=== PATIENT | female | born 1985 | race Caucasian/White ===

== ENCOUNTER 2018-02-08 20:47 | Inpatient (IN) ==
[2018-02-08] MEDS ORDERED: traZODone 50 MG TABLET PO PRN (21:32)
[2018-02-08] MEDS ORDERED: Haloperidol Lactate 5 MG/ML VIAL IM PRN (21:32)
[2018-02-08] MEDS ORDERED: *HR* LORazepam 2 MG/ML VIAL IM PRN (21:32)
[2018-02-08] MEDS ORDERED: MOM Conc 10 ML UD.LIQ PO PRN (21:32)
[2018-02-08] MEDS ORDERED: Acetaminophen 325 MG TABLET PO PRN (21:32)
[2018-02-08] MEDS ORDERED: Mag Hydrox/Al Hydrox/Simeth 30 ML UDC PO PRN (21:32)
[2018-02-08] MEDS ORDERED: *HR* LORazepam 1 MG TABLET PO PRN (21:32)
[2018-02-08] MEDS ORDERED: hydrOXYzine pamoate 25 MG CAPSULE PO PRN (21:32)
[2018-02-09] MEDS: Nicotine 21 MG PATCH.TD24 TD SCH (08:47)
--- NOTE | 2018-02-09 09:58 | Discharge Summary ---
Date of Encounter: 02/09/18 Time of Encounter: 09:50 Medications - Discharge Medications ARIPiprazole [Abilify] 5 mg PO DAILY 02/09/18 [History] Cholecalciferol (Vitamin D3) [Vitamin D] 800 unit PO DAILY 02/09/18 [History] Labetalol [Trandate] 200 mg PO BID 02/09/18 [History] Trazodone HCl 100 - 200 mg PO HS PRN 02/09/18 [History] Venlafaxine XR (24 HR) [Effexor XR] 225 mg PO DAILY 02/09/18 [History] metFORMIN [Glucophage] 500 mg PO BID 02/09/18 [History] 3 Allergy/AdvReac Type Severity Reaction Status Date / Time cephalexin [From Keflex] Allergy Anaphylaxis Verified 02/08/18 21:31 Penicillins Allergy Anaphylaxis Verified 02/08/18 21:31 acetaminophen [From Percocet] AdvReac Hallucinati Verified 02/08/18 21:31 ng clonazepam [From Klonopin] AdvReac See Verified 02/08/18 21:31 Comments naproxen [From Naprosyn] AdvReac Vomiting Verified 02/08/18 21:31 Oxycodone [From Percocet] AdvReac Hallucinati Verified 02/08/18 21:31 ng Provider Date of admission: 02/08/18 20:47 Primary care physician: PCP NONE Psychiatry Exam - Constitutional Vitals: Temp Pulse Resp BP 98.1 F 80 18 136/87 02/09/18 09:00 02/09/18 09:00 02/09/18 09:00 02/09/18 09:00 Hospital Course Hospital course: Ms. Garcia is a 32 year old female - Time Spent with Patient Total time spent providing and/or coordinating discharge services: Assessment and Plan - Follow up Plan Follow up with: NONE,PCP [Primary Care Provider] -
--- NOTE | 2018-02-09 14:12 | Psychiatry History & Physical ---
Date of Encounter: 02/09/18 Time of Encounter: 13:40 History of Present Illness Patient Stated Chief Complaint: "I had a major panic attack, actually a major breakdown" Medicare Admission Attestation: For traditional Medicare patients the provided hospital inpatient services are reasonable and necessary and in the case of services not specified as inpatient -only under 42 CFR 419.22 (n), that they are appropriately provided as inpatient services in accordance 42 CFR 412.3. For Critical Access Hospital the patient may reasonably be expected to be discharged or transferred to a hospital within 96 hours after admission to the Critical Access Hospital. Admitted From: Emergency Dept Plans for Post Hospital Care: Home History of Present Illness: Ms. Garcia is a 32 year old female who was admitted after being seen in [facility] emergency room feeling "I had a major panic attack, actually a major breakdown. I thought I was hearing Hayley again". Patient states that she has been off her medications for at least 5 days. She states she is experiencing poor sleep, feeling anxious and irritable, depressed with low energy hopeless and helpless, decreased appetite and auditory hallucination. She was hearing Hayley's voice telling her to herself. She is not sure why she stopped taking the medication. She denies any side effects. She tells me that she just got busy and forgot. She denies any symptoms of matty, impulsivity or grandiosity. When sh started hearing the voice of Hayley again, she knew she needed to get to the hospital. She has been under a lot of stress lately her [id number] a couple weeks ago, her brother was hospitalized for medical reasons and soon after her mother was hospitalized. She was feeling suicidal when she went the emergency room. She did not make any attempt or gesture. She also states that she is having stress at work with a problematic client and also having stress in her home environment with some physical issues with the house that are not getting repaired. She does feel safe on the unit. She denies any current suicidal ideation. She is wanting to get restarted on her medications. She denies any auditory hallucinations at this time. She did not sleep well well last night taking a low-dose trazodone. We discussed restarting her medications Abilify 5 mg PO Q day in the trazodone 100mg -200 mg PO QHS and probably needing to taper her Effexor XR back up. Starting a 75 mg again and potentially rapid tapering it up to the 225 mg where she was. She is agreeable to all this. Past Med Surg Social Fam HX - Past Medical History Source: patient Medical history: hyperlipidemia, hypertension - Past Psychiatric History Psychiatric history: Reports: depression, prior suicide attempt, previous psychiatric hospitalization Family psychiatric history: Yes (Maternal Grandfather) Family History of Suicide: None - Past Surgical History Surgical History: breast surgery - Social History Smoking Status: Current every day smoker Smokeless Tobacco Status: No Alcohol use: occasionally Drug use: none Occupational status: employed Current living situation: Home - Independent Activity Level: Independent ambulation Recent Out of Country Travel Within the Last 8 Weeks: No Exposure or Possible Exposure to Illness During Travel: No - Family History Mother History Unknown: Yes Adopted: Yes (Grandmother adopted) Age: 1 Family Member Ethnicity: Non- Living Status: Still Living Hx Family Cardiac Disorders: Yes Hx Family Respiratory Disorders: No Hx Family Cancer: Yes Hx Family GI Disorders: No Hx Family Genitourinary Disorders: No Hx Family Endocrine Disorder: Yes Hx Family Musculoskeletal Disorders: No Hx Family Neuromuscular Disorders: Yes ( mother has MS) Hx Family Neurologic Disorders: Yes (CVAs) Hx Family HEENT Disorders: No Hx Family Autoimmune Disorders: No Hx Family Reproductive Disorders: No Hx Family Psychosocial Disorders: Yes (Grandfather and his side of family have unknown issues) Hx Family Medical Disorders: No Medications & Allergies ARIPiprazole [Abilify] 5 mg PO DAILY 02/09/18 [History] Cholecalciferol (Vitamin D3) [Vitamin D] 800 unit PO DAILY 02/09/18 [History] Labetalol [Trandate] 200 mg PO BID 02/09/18 [History] Trazodone HCl 100 - 200 mg PO HS PRN 02/09/18 [History] Venlafaxine XR (24 HR) [Effexor XR] 225 mg PO DAILY 02/09/18 [History] metFORMIN [Glucophage] 500 mg PO BID 02/09/18 [History] 3 Allergy/AdvReac Type Severity Reaction Status Date / Time cephalexin [From Keflex] Allergy Anaphylaxis Verified 02/08/18 21:31 Penicillins Allergy Anaphylaxis Verified 02/08/18 21:31 acetaminophen [From Percocet] AdvReac Hallucinati Verified 02/08/18 21:31 ng clonazepam [From Klonopin] AdvReac See Verified 02/08/18 21:31 Comments naproxen [From Naprosyn] AdvReac Vomiting Verified 02/08/18 21:31 Oxycodone [From Percocet] AdvReac Hallucinati Verified 02/08/18 21:31 ng Exam - HEENT Head exam IM: Present: atraumatic Eye exam IM: Present: EOMI, normal appearance ENT exam IM: Present: normal exam - Extremities Extremities exam IM: Present: full ROM - Constitutional Vitals: Temp Pulse Resp BP 98.1 F 80 18 136/87 02/09/18 09:00 02/09/18 09:00 02/09/18 09:00 02/09/18 09:00 General appearance: age & developmentally appropriate, well-groomed, well- nourished - Musculoskeletal Gait: normal Station: erect Strength & Tone: normal for patient - Psychiatric Patient Orientation: Yes Person, Yes Time, Yes Place, Yes Circumstance Level of alertness: Alert Behavior: cooperative, nervous Psychomotor activity: Normal Eye Contact: Maintains Eye Contact Mood Description: Anxious Affect description: flat, other (very unemotional) Speech Volume: Normal Speech pattern: normal rate, normal rhythm, normal tone Language & Vocabulary: consistent with education Thought Process: Intact, Logical, Linear, Goal Oriented Attention Span Ability: Capable of Focused Attention, Capable of Sustained Attention Memory Description: Grossly Intact Patient Reliability: Reliable Historian Fund of knowledge: Yes abstraction ability Intelligence Estimate: Average Judgment: Fair Insight: Partial Assessment and Plan (1) Depression, major, recurrent, severe with psychosis Current visit: Yes Status: Acute Plan: Admit inpatient for safety and stabilization, Close observation, Suicide Precautions per unit protocol, Encourage participation in unit milieu, Group Therapy, Monitor sleep Risks, benefits, side effects, alternatives discussed w /pt: Yes (Restart outpatinet medications; taper up Effexor.) Patient agreeable to treatment: Yes Plans for Post Hospital Care: Home Estimated Length of Stay (Days): 5
[2018-02-09] MEDS: Venlafaxine XR (24 HR) 75 MG CAP.ER.24H PO SCH (15:02)
[2018-02-09] MEDS: ARIPiprazole 5 MG TABLET PO SCH (15:02)
[2018-02-09] MEDS: traZODone 50 MG TABLET PO SCH (20:10)
[2018-02-10] MEDS: ARIPiprazole 5 MG TABLET PO SCH (09:35)
[2018-02-10] MEDS: Nicotine 21 MG PATCH.TD24 TD SCH (09:36)
[2018-02-10] MEDS: Venlafaxine XR (24 HR) 75 MG CAP.ER.24H PO SCH (09:36)
--- NOTE | 2018-02-10 11:23 | Psychiatry Progress Note ---
Date of Encounter: 02/10/18 Time of Encounter: 11:10 Subjective Interval history: Patient tells me today she is "good". She denies any side effects of the restarting of the medication. She states that she would like to increase the Effexor to 150 mg tomorrow. She is eating fine, sleeping fine; having slept 8.5 hours last night. She had a family visit last night she states went well. She feels positive about that. She is reading books on the unit and attending groups. She denies any suicidal/homicidal ideation. She denies any auditory or visual hallucinations. Her depression seems to be slightly improved, with her not feeling is low mood and feeling more motivated. She's had no more hallucinations in hearing Hayley's voice. Results - Vital Signs Vital Signs: Temp Pulse Resp BP 97.7 F 90 18 128/89 02/10/18 08:53 02/10/18 08:53 02/10/18 08:53 02/10/18 08:53 Assessment and Plan (1) Depression, major, recurrent, severe with psychosis Current visit: Yes Status: Acute Plan: Continue hospitalization, Close observation, Suicide Precautions per unit protocol, Encourage participation in unit milieu, Group Therapy, Monitor sleep Risks, benefits, side effects, alternatives discussed w/pt: Yes (Increase Effexor XR dose tomorrow to 150 mg) Patient agreeable to treatment: Yes Consult Discharge Plan - Plan Referrals: [facility] [Outside] - 03/30/18 10:00 am (The above appointment is with Dr. Willis outpatient psychiatric assessment and medication management services on. You have another appointment scheduled with Dr. Willis for 2017 at 11:20 AM also. Please arrive 10 minutes early to all appointments to complete the check-in process. Please bring your insurance card (or [facility]) and photo ID. If you are unable to keep any scheduled appointment, 24 hour business notice of cancellation is expected. The above appointment(s) reflects first availability. You may contact the office regularly to check for cancellations that may allow you to be seen sooner. ) [facility] [Outside] - 02/21/18 11:00 am (The above appointment is with Bhumika Ga for outpatient mental health counseling services.) Psychiatry Exam - Constitutional Vitals: Temp Pulse Resp BP 97.7 F 90 18 128/89 02/10/18 08:53 02/10/18 08:53 02/10/18 08:53 02/10/18 08:53 General appearance: age & developmentally appropriate - Musculoskeletal Gait: normal Station: relaxed Strength & Tone: normal for patient - Psychiatric Patient Orientation: Yes Person, Yes Time, Yes Place, Yes Circumstance Level of alertness: Alert Behavior: calm, cooperative Psychomotor activity: Normal Eye Contact: Maintains Eye Contact Mood Description: Euthymic/stable Affect description: congruent with mood Speech Volume: Normal Speech pattern: normal rate, normal rhythm, normal tone Language & Vocabulary: consistent with education Thought Process: Intact, Logical, Linear, Goal Oriented Thought Content: Yes Intact Attention Span Ability: Capable of Focused Attention, Capable of Sustained Attention Memory Description: Grossly Intact Patient Reliability: Reliable Historian Fund of knowledge: Yes abstraction ability Intelligence Estimate: Average Judgment: Good Insight: Partial
[2018-02-10] MEDS: traZODone 50 MG TABLET PO SCH (21:51)
[2018-02-11] MEDS: Venlafaxine XR (24 HR) 150 MG CAP.ER.24H PO SCH (09:41)
[2018-02-11] MEDS: ARIPiprazole 5 MG TABLET PO SCH (09:41)
[2018-02-11] MEDS: Nicotine 21 MG PATCH.TD24 TD SCH (09:41)
--- NOTE | 2018-02-11 11:42 | Psychiatry Progress Note ---
Date of Encounter: 02/11/18 Time of Encounter: 11:30 Subjective Interval history: ID patient is a 32-year-old white female. Her chief complaint is have not heard the voice of Hayley since . History of present illness: The patient had been admitted after missing her medicines for several days. She told me that she had gotten busy and was unable to get the meds filled or taken. She developed suicidal ideation and auditory hallucinations. The voice of Hayley told her to kill herself. But currently voice of Hayley cannot be heard and patient does not have immediate plans to kill herself or kill himself on the unit. The patient had the Effexor increased to 50 mg. She was able to tolerate this increase. She requests an increase to 225 but because of side effects and does not want to increase tomorrow. The patient is interested in going to work in the next week. 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 The patient put in 88 hours in the week before admission and this may have played a role in depression and the emergence of auditory hallucinations. Other options for the patient included 90 day supply of Effexor and Abilify or even a long-acting injectable form of Abilify. This includes her started and Abilify maintain. Patient's blood pressures been under control with medication and is been no increase in blood pressure with the increase in Effexor. Nonetheless monitoring blood pressure is important. The importance of follow-up and continuing on the medicines and 2018 discussed efforts to reduce her taper her medicines should be discussed with her prescribing physician. Sleep hygiene and sleep maintenance were also discussed Review of Systems Psychiatric: Reports: depression, abnormal sleep pattern, suicidal ideation, auditory hallucinations Results - Vital Signs Vital Signs: Temp Pulse Resp BP 98.3 F 81 16 114/74 02/11/18 09:00 02/11/18 09:00 02/11/18 09:00 02/11/18 09:00 Assessment and Plan (1) Essential (primary) hypertension Current visit: Yes Status: Chronic Plan: Continue hospitalization, Close observation, Encourage participation in unit milieu, Monitor sleep, Monitor appetite Risks, benefits, side effects, alternatives discussed w/pt: Yes Patient agreeable to treatment: Yes (2) Suicidal ideations Current visit: Yes Status: Acute Plan: Continue hospitalization, Close observation, Secure weapons, Family/ Supportive other meeting Risks, benefits, side effects, alternatives discussed w/pt: Yes Patient agreeable to treatment: Yes (3) Depression, major, recurrent, severe with psychosis Current visit: Yes Status: Acute Plan: Continue hospitalization, Close observation, Suicide Precautions per unit protocol, Encourage participation in unit milieu, Group Therapy, Monitor sleep, Secure weapons, Family/Supportive other meeting Risks, benefits, side effects , alternatives discussed w/pt: Yes (Increase Effexor XR dose tomorrow to 150 mg ) Patient agreeable to treatment: Yes Consult Discharge Plan - Plan Referrals: [facility] [Outside] - 03/30/18 10:00 am (The above appointment is with Dr. Willis outpatient psychiatric assessment and medication management services on. You have another appointment scheduled with Dr. Willis for 2017 at 11:20 AM also. Please arrive 10 minutes early to all appointments to complete the check-in process. Please bring your insurance card (or [facility] award letter) and photo ID. If you are unable to keep any scheduled appointment, 24 hour business notice of cancellation is expected. The above appointment(s) reflects first availability. You may contact the office regularly to check for cancellations that may allow you to be seen sooner. ) [facility] [Outside] - 02/21/18 11:00 am (The above appointment is with Bhumika Ga for outpatient mental health counseling services.) Psychiatry Exam - Constitutional Vitals: Temp Pulse Resp BP 98.3 F 81 16 114/74 02/11/18 09:00 02/11/18 09:00 02/11/18 09:00 02/11/18 09:00 General appearance: age & developmentally appropriate, well-groomed, well- nourished - Musculoskeletal Gait: normal Station: relaxed Strength & Tone: normal for patient - Psychiatric Patient Orientation: Yes Person, Yes Time, Yes Place Level of alertness: Alert Behavior: calm, cooperative Eye Contact: Maintains Eye Contact Affect description: full range, dysphoric Speech Volume: Normal Speech pattern: normal rate, normal rhythm, normal tone, fluent, spontaneous Language & Vocabulary: consistent with education Thought Process: Linear, Goal Oriented Thought Content: Yes Suicidal ideation, No Homicidal ideation, No Overt delusions Perceptual Disturbances: Yes Auditory hallucinations, No Visual hallucinations Attention Span Ability: Capable of Focused Attention Memory Description: Grossly Intact Patient Reliability: Reliable Historian Fund of knowledge: Yes abstraction ability, Yes aware of current events Intelligence Estimate: Average Judgment: Fair Insight: Partial
[2018-02-11] MEDS: traZODone 50 MG TABLET PO SCH (21:06)
[2018-02-12] MEDS: Nicotine 21 MG PATCH.TD24 TD SCH (09:35)
[2018-02-12] MEDS: Venlafaxine XR (24 HR) 150 MG CAP.ER.24H PO SCH (09:35)
[2018-02-12] MEDS: ARIPiprazole 5 MG TABLET PO SCH (09:35)
[2018-02-12] MEDS ORDERED: Venlafaxine XR (24 HR) 75 MG CAP.ER.24H PO SCH (11:00)
--- NOTE | 2018-02-12 11:02 | Psychiatry Progress Note ---
Date of Encounter: 02/12/18 Time of Encounter: 11:00 Subjective Interval history: The patient is a 32-year-old white female who returns for follow-up on the unit. Chief complaint I am worried about the voices and depression coming back. The patient is improved on the current regimen of medicines however she is not the target dose of Effexor 225 mg per day previously she took 375's in the morning in order to achieve this dose. The patient uses a [facility] pharmacy in her town which has some limited hours. The patient is working long hours at her job. The patient has been getting 30 day supplies of her psychiatric medicines and blood pressure medicines. Her vital signs remained stable and she feels that she is tolerating the medicine she has no nausea or vomiting today. 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 She had auditory hallucinations with suicidal ideation and suicidal intent. Therefore she was concerned about how long she should remain on medicines and how to stay on medicines. Salgado direct care counselor was given regarding using a 90 day supply of medicines, home delivery pharmacy services, mail-order medication options and the need to stay on the same dose of these medicines for one year after the index hospitalization. For some patients with severe episodes 5 years of continuous medicine can be considered. However I told her I would defer to Dr. Hogan for the ongoing management of condition. The patient notes that the Vistaril is helpful and would like to continue this on an as-needed basis at discharge. I will place her on a scheduled Vistaril. I will increase Effexor. Patient has counseling scheduled next week. Further stabilization will be necessary on the unit as well as adjustment to the medicine Effexor Review of Systems Psychiatric: Reports: depression, abnormal sleep pattern, suicidal ideation, auditory hallucinations Results - Vital Signs Vital Signs: Temp Pulse Resp BP 97.3 F L 81 16 119/82 02/12/18 09:00 02/12/18 09:00 02/12/18 09:00 02/12/18 09:00 Assessment and Plan (1) Essential (primary) hypertension Current visit: Yes Status: Chronic Plan: Continue hospitalization, Close observation, Suicide Precautions per unit protocol, Monitor sleep Risks, benefits, side effects, alternatives discussed w/pt: Yes Patient agreeable to treatment: Yes (2) Suicidal ideations Current visit: Yes Status: Acute Plan: Continue hospitalization, Close observation, Suicide Precautions per unit protocol, Encourage participation in unit milieu, Secure weapons Risks, benefits, side effects, alternatives discussed w/pt: Yes Patient agreeable to treatment: Yes (3) Depression, major, recurrent, severe with psychosis Current visit: Yes Status: Acute Plan: Continue hospitalization, Close observation, Suicide Precautions per unit protocol, Encourage participation in unit milieu, Group Therapy, Monitor sleep, Monitor appetite Risks, benefits, side effects, alternatives discussed w/pt: Yes (Increase Effexor XR dose tomorrow to 150 mg) Patient agreeable to treatment: Yes Consult Discharge Plan - Plan Referrals: [facility] [Outside] - 03/30/18 10:00 am (The above appointment is with Dr. Willis outpatient psychiatric assessment and medication management services on. You have another appointment scheduled with Dr. Willis for 2017 at 11:20 AM also. Please arrive 10 minutes early to all appointments to complete the check-in process. Please bring your insurance card ([facility]) and photo ID. If you are unable to keep any scheduled appointment, 24 hour business notice of cancellation is expected. The above appointment(s) reflects first availability. You may contact the office regularly to check for cancellations that may allow you to be seen sooner. ) [facility] [Outside] - 02/21/18 11:00 am (The above appointment is with Bhumika Ga for outpatient mental health counseling services.) Psychiatry Exam - Constitutional Vitals: Temp Pulse Resp BP 97.3 F L 81 16 119/82 02/12/18 09:00 02/12/18 09:00 02/12/18 09:00 02/12/18 09:00 General appearance: age & developmentally appropriate, well-groomed, well- nourished - Musculoskeletal Gait: normal Station: relaxed Strength & Tone: normal for patient - Psychiatric Patient Orientation: Yes Person, Yes Time, Yes Place Level of alertness: Alert Behavior: calm, nervous, anxious Psychomotor activity: Normal Eye Contact: Maintains Eye Contact Mood Description: Anxious Affect description: congruent with mood, full range, dysphoric Speech Volume: Normal Speech pattern: normal rate, normal rhythm, normal tone, fluent, spontaneous Language & Vocabulary: consistent with education Thought Process: Linear, Goal Oriented Thought Content: Yes Suicidal ideation, No Homicidal ideation, No Overt delusions Perceptual Disturbances: Yes Auditory hallucinations, No Visual hallucinations Attention Span Ability: Capable of Focused Attention Memory Description: Grossly Intact Patient Reliability: Reliable Historian Fund of knowledge: Yes abstraction ability, Yes aware of current events Intelligence Estimate: Average Judgment: Fair Insight: Partial
[2018-02-12] MEDS ORDERED: Venlafaxine XR (24 HR) 75 MG CAP.ER.24H PO ONE (11:14)
[2018-02-12] MEDS: hydrOXYzine pamoate 25 MG CAPSULE PO SCH ×2 (15:24→20:53)
[2018-02-12] MEDS: traZODone 50 MG TABLET PO SCH (20:53)
--- NOTE | 2018-02-13 07:15 | Discharge Summary ---
Date of Encounter: 02/13/18 Time of Encounter: 07:15 Diagnosis - Discharge Diagnosis (1) Depression, major, recurrent, severe with psychosis Status: Acute (2) Essential (primary) hypertension Status: Chronic (3) Suicidal ideations Status: Acute Medications - Discharge Medications ARIPiprazole [Abilify] 5 mg PO DAILY 02/09/18 [History] Cholecalciferol (Vitamin D3) [Vitamin D3] 800 unit PO DAILY 02/09/18 [History] Labetalol [Trandate] 200 mg PO BID 02/09/18 [History] Trazodone HCl 100 - 200 mg PO HS PRN 02/09/18 [History] Venlafaxine XR (24 HR) [Effexor XR] 225 mg PO DAILY 02/09/18 [History] metFORMIN [Glucophage] 500 mg PO BID 02/09/18 [History] hydrOXYzine pamoate [HydrOXYzine Pamoate] 25 mg PO TID 30 Days capsule [Rx] 3 Allergy/AdvReac Type Severity Reaction Status Date / Time cephalexin [From Keflex] Allergy Anaphylaxis Verified 02/08/18 21:31 Penicillins Allergy Anaphylaxis Verified 02/08/18 21:31 acetaminophen [From Percocet] AdvReac Hallucinati Verified 02/08/18 21:31 ng clonazepam [From Klonopin] AdvReac See Verified 02/08/18 21:31 Comments naproxen [From Naprosyn] AdvReac Vomiting Verified 02/08/18 21:31 Oxycodone [From Percocet] AdvReac Hallucinati Verified 02/08/18 21:31 ng Provider Date of admission: 02/08/18 20:47 Primary care physician: PCP NONE Discharging clinician: Patrice Foy Psychiatry Exam - Constitutional Vitals: Temp Pulse Resp BP 98.1 F 80 16 120/83 02/12/18 20:05 02/12/18 20:05 02/12/18 20:05 02/12/18 20:05 General appearance: age & developmentally appropriate, well-groomed, well- nourished - Musculoskeletal Gait: normal Station: relaxed Strength & Tone: normal for patient - Psychiatric Patient Orientation: Yes Person, Yes Time, Yes Place Level of alertness: Alert Behavior: calm, cooperative Psychomotor activity: Normal Eye Contact: Maintains Eye Contact Mood Description: Euthymic/stable Affect description: congruent with mood, full range Speech Volume: Normal Speech pattern: normal rate, normal rhythm, normal tone, fluent, spontaneous Language & Vocabulary: consistent with education Thought Process: Linear, Goal Oriented Thought Content: No Suicidal ideation, No Homicidal ideation, No Overt delusions Perceptual Disturbances: No Auditory hallucinations, No Visual hallucinations Attention Span Ability: Capable of Focused Attention Memory Description: Grossly Intact Patient Reliability: Reliable Historian Fund of knowledge: Yes abstraction ability, Yes aware of current events Intelligence Estimate: Average Judgment: Limited Insight: Partial Hospital Course Hospital course: Ms. Garcia is a 32 year old female who was admitted after being seen in [facility] emergency room feeling "I had a major panic attack, actually a major breakdown. I thought I was hearing Hayley again". Patient states that she has been off her medications for at least 5 days. She states she is experiencing poor sleep, feeling anxious and irritable, depressed with low energy hopeless and helpless, decreased appetite and auditory hallucination. She was hearing Hayley's voice telling her to herself. She is not sure why she stopped taking the medication. She denies any side effects. She tells me that she just got busy and forgot. She denies any symptoms of matty, impulsivity or grandiosity. When sh started hearing the voice of Hayley again, she knew she needed to get to the hospital. The patient is noted she has improved on the current regimen of medicines Effexor 225 mg per day. Pts vital signs remained stable and she feels that she is tolerating the medicine she has no nausea or vomiting today. Pt noted she is optimistic to return home to her family. Pt denied any side effects to current medications. Pt noted she felt safe and comfortable on the unit. Pt was in agreement with treatment plan. Pt noted that she is doing pretty good today. Pt noted she slept broken 8 hours last night. Pt noted her appetite is okay. Pt rated her depression a 1, on a scale of zero to ten with ten being the worst and zero being none. Pt rate her anxiety a 1, on the same scale. Pt denied any visual or auditory hallucinations. Pt denied any thoughts to harm herself or anyone else. Pt noted she feels safe and comfortable for her discharge home. Pt was very polite and courteous during the interview. AIMS=0 TD none noted 1.Interval hx 2.Continue current medications 3.Review current labs 4.Pt had an opportunity to ask questions and discuss current treatment plan. 5.Supportive therapy was provided 6.Pt encouraged to consider group or individual therapy 7.Pt was in agreement with treatment plan. 8.Pt was educated on the risks benefits and side effects of current medications. 9. Follow up with all scheduled appointments 10. Abstain from any alcohol illicit substances 11. Take all medications as prescribed 12. Pt educated on her current treatment plan, including risks benifits and side -effects of current medications including EPS and TD and was in agreement. Time spent discussing smoking cessation with patient: 3 to 10 minutes Does patient wish to continue nicotine replacement upon disc: No - Time Spent with Patient Total time spent providing and/or coordinating discharge services: Less than 30 minutes Assessment and Plan - Patient/Caregiver Discharge Instructions Activity: resume usual activities as tolerated Diet: regular diet - Follow up Plan Follow up with: [facility] [Outside] - 03/30/18 10:00 am (The above appointment is with Dr. Willis outpatient psychiatric assessment and medication management services on. You have another appointment scheduled with Dr. Willis for 2017 at 11:20 AM also. Please arrive 10 minutes early to all appointments to complete the check-in process. Please bring your insurance card (or [facility] award letter) and photo ID. If you are unable to keep any scheduled appointment, 24 hour business notice of cancellation is expected. The above appointment(s) reflects first availability. You may contact the office regularly to check for cancellations that may allow you to be seen sooner. ) [facility] [Outside] - 02/21/18 11:00 am (The above appointment is with Bhumika Ga for outpatient mental health counseling services.) Overall status at discharge: Stable Disposition: Home, Self-Care Quality - Multiple Antipsychotics Patient discharged on 2 or more antipsychotic medications: No - Justification Documentation of: No documentation of justification (pt not DISCHARGED ON ONE ANTIPSYCHOTIC) Procedures - Procedures Procedures: Medication Management, Crisis Stabilization, Supportive Therapy, Psychoeducational Therapy
[2018-02-13] MEDS: Nicotine 21 MG PATCH.TD24 TD SCH (08:53)
[2018-02-13] MEDS: ARIPiprazole 5 MG TABLET PO SCH (08:54)
[2018-02-13] MEDS: hydrOXYzine pamoate 25 MG CAPSULE PO SCH (08:55)
[2018-02-13] MEDS ORDERED: Venlafaxine XR (24 HR) 75 MG CAP.ER.24H PO SCH (09:00)
[2018-02-13 09:33] VITALS: BP 129/81
== END 2018-02-13 10:04 | disposition home or self-care (01) | DRG 751 ==
LOC: 1ANU 20:47 → SUATTDRO 20:47
PROVIDERS: ADMIT Psychiatry & Neurology Psychiatry; ATTEND Psychiatry & Neurology Forensic Psychiatry